=== PATIENT | male | born 1940 | race Caucasian/White ===

== ENCOUNTER → 2017-09-20 | Outpatient (CLI) | payer MEDICARE ==
[2017-09-20 11:48] LABS: Blood Urea Nitrogen 24 mg/dL (9-20)
--- NOTE | 2017-09-20 12:31 | CT ---
EXAMINATION TYPE: CT chest w con DATE OF EXAM: 09/20/2017 COMPARISON: NONE HISTORY: bilateral pneumonia CT DLP: 358.4 mGycm, Automated exposure control for dose reduction was used. CONTRAST: Performed injected with 100 mL of Isovue 300. TECHNIQUE: Axial images were obtained at 5 mm thick sections. Reconstructed images are reviewed on [employer] computer in the coronal plane. FINDINGS: Portion of the thyroid visualized is normal. No suspicious lung nodules or focal infiltrates are present. No enlarged mediastinal or hilar adenopathy is evident. The ascending aorta diameter at the level o f the main pulmonary artery is 3.8 cm. The main pulmonary artery diameter at the bifurcation is 2.[address] sections are obtained through the upper abdomen. A cyst measuring 1 Hounsfield unit and 2 cm size at superior pole right kidney. Sludge or debris within the gallbladder is not excluded. This could be volume averaging as the gallbladder is incompletely evaluated on the study. IMPRESSIONS: 1. No acute pulmonary process. 2. Right renal cyst superior pole right kidney.
== END | disposition home or self-care (01) ==
LOC: RADCTMAIN 11:13
PROVIDERS: ATTEND Internal Medicine Critical Care Medicine
DX: J18.9 Pneumonia, unspecified organism (principal)
CPT/HCPCS: 82565; 84520; 71260; 36415; Q9967